=== PATIENT | female | born 1975 | race Caucasian/White ===

== ENCOUNTER 2017-01-14 08:50 | Emergency (ER) | payer MEDICAID ==
[2017-01-14 09:31] LABS: CALCIUM 8.7 mg/dL (8.5-10.1); CARBON DIOXIDE 25.8 mmol/L (21-32); CHLORIDE SERUM 104 mmol/L (98-107); CREATININE SERUM 0.8 mg/dL (0.6-1.0); GFR1 > 60 mL/min; GLUCOSE SERUM 91 mg/dL (74-106); POTASSIUM SERUM 4.1 mmol/L (3.5-5.1); SODIUM SERUM 138 mmol/L (136-145)
[2017-01-14 09:32] LABS: BASOPHIL % 0.5 % (0-2); PLATELET COUNT 311 x10^3mcL (130-400); RED CELL DISTRIBUTION WIDTH 13.2 % (11.5-14.5)
[2017-01-14 09:35] LABS: ALKALINE PHOSPHATASE 49 U/L (46-116); ALT/SGPT 16 U/L (14-59); AMYLASE 71 U/L (25-115); AST/SGOT 10 U/L (15-37); BILIRUBIN TOTAL 0.16 mg/dL (0.20-1.00); LIPASE 211 IU/L (73-393); TOTAL PROTEIN, SERUM 7.4 g/dL (6.4-8.2)
[2017-01-14 09:37] LABS: ALBUMIN 3.3 g/dL (3.4-5.0)
[2017-01-14 11:17] VITALS: BP 132/74
== END 2017-01-14 11:17 | disposition home or self-care (01) ==
LOC: ED 08:50
PROVIDERS: Emergency Medicine
DX: K52.9 Noninfective gastroenteritis and colitis, unspecified (principal); Z79.899 Other long term (current) drug therapy
CPT/HCPCS: 36415; 83880; J1885; Q0162

== ENCOUNTER 2017-07-17 14:54 | Emergency (ER) | payer MEDICAID ==
[~2017-07-17] VITALS: Ht 157.5 cm; Wt 77.1 kg
[2017-07-17 15:02] VITALS: Ht 157.5 cm; Wt 77.1 kg
[2017-07-17 19:24] VITALS: BP 131/88
== END 2017-07-17 19:24 | disposition home or self-care (01) ==
LOC: ED 14:54
DX: S90.121A Contusion of right lesser toe(s) without damage to nail, initial encounter (principal); G80.9 Cerebral palsy, unspecified; Z88.5 Allergy status to narcotic agent; Z88.6 Allergy status to analgesic agent; W22.03XA Walked into furniture, initial encounter; Y93.89 Activity, other specified; Y92.89 Other specified places as the place of occurrence of the external cause; Y99.8 Other external cause status
CPT/HCPCS: J1885

== ENCOUNTER 2018-03-09 17:10 | Emergency (ER) | payer MEDICAID ==
[~2018-03-09] VITALS: Ht 160 cm; Wt 74.8 kg
[2018-03-09 18:23] LABS: BASOPHIL % 0.7 % (0-2); PLATELET COUNT 284 x10^3mcL (130-400); RED CELL DISTRIBUTION WIDTH 13.3 % (11.5-14.5)
[2018-03-09 18:35] LABS: CARBON DIOXIDE 22.7 mmol/L (21-32); CHLORIDE SERUM 106 mmol/L (98-107); CREATININE SERUM 0.8 mg/dL (0.6-1.0); GFR1 > 60 mL/min; GLUCOSE SERUM 95 mg/dL (74-106); POTASSIUM SERUM 3.7 mmol/L (3.5-5.1); SODIUM SERUM 139 mmol/L (136-145)
[2018-03-09 18:42] LABS: AMPHETAMINE QUAL UR NONE DETECTED (See below)
[2018-03-09 18:45] LABS: ALKALINE PHOSPHATASE 56 U/L (46-116); ALT/SGPT 25 U/L (14-59); AST/SGOT 14 U/L (15-37); BILIRUBIN TOTAL 0.35 mg/dL (0.20-1.00); TOTAL PROTEIN, SERUM 6.6 g/dL (6.4-8.2)
[2018-03-09 18:53] LABS: ALBUMIN 3.1 g/dL (3.4-5.0)
[2018-03-09 19:35] VITALS: BP 133/76
== END 2018-03-09 19:35 | disposition home or self-care (01) ==
LOC: ED 17:10
PROVIDERS: Emergency Medicine
DX: R07.89 Other chest pain (principal); M54.6 Pain in thoracic spine; R06.02 Shortness of breath; Z88.8 Allergy status to other drugs, medicaments and biological substances
CPT/HCPCS: 83880; J1885; J7030; Q0092

== ENCOUNTER 2018-04-19 18:04 | Emergency (ER) | payer MEDICAID ==
[~2018-04-19] VITALS: Ht 157.5 cm; Wt 73.9 kg
[2018-04-19 18:13] VITALS: Ht 157.5 cm; Wt 73.9 kg
[2018-04-19 20:22] VITALS: BP 131/78
== END 2018-04-19 20:22 | disposition home or self-care (01) ==
LOC: ED 18:04
DX: S50.362A Insect bite (nonvenomous) of left elbow, initial encounter (principal); L03.114 Cellulitis of left upper limb; J45.909 Unspecified asthma, uncomplicated; F41.9 Anxiety disorder, unspecified; Z88.6 Allergy status to analgesic agent; Z88.8 Allergy status to other drugs, medicaments and biological substances; W57.XXXA Bitten or stung by nonvenomous insect and other nonvenomous arthropods, initial encounter; Y93.89 Activity, other specified; Y92.89 Other specified places as the place of occurrence of the external cause; Y99.8 Other external cause status
CPT/HCPCS: J7512; Q0163

== ENCOUNTER 2018-09-10 16:38 | Emergency (ER) | payer MEDICAID ==
[2018-09-10 17:02] VITALS: Ht 154.9 cm
[2018-09-10 17:30] VITALS: BP 129/87
== END 2018-09-10 17:30 | disposition home or self-care (01) ==
LOC: ED 16:38
DX: H66.91 Otitis media, unspecified, right ear (principal); J06.9 Acute upper respiratory infection, unspecified; J45.909 Unspecified asthma, uncomplicated; I10 Essential (primary) hypertension; F41.9 Anxiety disorder, unspecified; Z86.69 Personal history of other diseases of the nervous system and sense organs; Z88.8 Allergy status to other drugs, medicaments and biological substances; Z88.5 Allergy status to narcotic agent

== ENCOUNTER 2018-10-19 16:46 | Emergency (ER) | payer MEDICAID ==
[~2018-10-19] VITALS: Ht 157.5 cm; Wt 77.1 kg
[2018-10-19 16:51] VITALS: BP 125/89; Ht 157.5 cm; Wt 77.1 kg
== END 2018-10-19 18:00 | disposition home or self-care (01) ==
LOC: ED 16:46
DX: J42 Unspecified chronic bronchitis (principal); F41.9 Anxiety disorder, unspecified; E78.00 Pure hypercholesterolemia, unspecified; I10 Essential (primary) hypertension; J45.909 Unspecified asthma, uncomplicated; Z88.8 Allergy status to other drugs, medicaments and biological substances; Z88.5 Allergy status to narcotic agent; Z88.1 Allergy status to other antibiotic agents
CPT/HCPCS: 87804

== ENCOUNTER 2019-02-22 12:36 | Emergency (ER) | payer MEDICAID ==
[~2019-02-22] VITALS: Ht 157.5 cm; Wt 75.3 kg
[2019-02-22 12:41] VITALS: Ht 157.5 cm; Wt 75.3 kg
[2019-02-22 13:25] VITALS: BP 141/86
== END 2019-02-22 13:25 | disposition home or self-care (01) ==
LOC: ED 12:36
DX: L73.9 Follicular disorder, unspecified (principal); I10 Essential (primary) hypertension; J45.909 Unspecified asthma, uncomplicated; F41.9 Anxiety disorder, unspecified; E78.00 Pure hypercholesterolemia, unspecified; Z88.5 Allergy status to narcotic agent; Z88.8 Allergy status to other drugs, medicaments and biological substances

== ENCOUNTER 2019-02-28 14:30 | Emergency (ER) | payer MEDICAID ==
[~2019-02-28] VITALS: Ht 157.5 cm; Wt 77.1 kg
[2019-02-28 14:48] VITALS: Ht 157.5 cm; Wt 77.1 kg
[2019-02-28 15:35] VITALS: BP 129/62
== END 2019-02-28 15:35 | disposition home or self-care (01) ==
LOC: ED 14:30
DX: L03.114 Cellulitis of left upper limb (principal); I10 Essential (primary) hypertension; E78.00 Pure hypercholesterolemia, unspecified; F41.9 Anxiety disorder, unspecified; Z88.5 Allergy status to narcotic agent; Z88.8 Allergy status to other drugs, medicaments and biological substances
CPT/HCPCS: J0696; J7512

== ENCOUNTER 2019-03-01 15:12 | Emergency (ER) | payer MEDICAID ==
[~2019-03-01] VITALS: Ht 157.5 cm; Wt 76.2 kg
[2019-03-01 15:17] VITALS: Ht 157.5 cm; Wt 76.2 kg
[2019-03-01 16:46] VITALS: BP 122/50
== END 2019-03-01 16:46 | disposition home or self-care (01) ==
LOC: ED 15:12
DX: L03.114 Cellulitis of left upper limb (principal)